=== PATIENT | male | born 1995 | race American Indian/Alaskan Native ===

== ENCOUNTER 2020-12-26 02:55 | Emergency (ER) | payer OTHER ==
[2020-12-26 03:31] VITALS: BP 105/63
--- NOTE | 2020-12-26 03:42 | Emergency Department Report ---
ED Male HPI - General Chief complaint: Urogenital-Male Stated complaint: BLOOD WORK/SEXUAL HEALTH Source: patient Mode of arrival: Ambulatory Limitations: No Limitations - History of Present Illness Initial comments: Patient is a 25-year-old -[place] male with no past of chlamydia and gonorrhea, as well as genital herpes infection presents to the ED with complaint of acute onset persistent dysuria, penile itching and pain for the last 2 days. Patient states that he would like to be evaluated extensively for STD with blood work to determine what kind of STD he has. Patient admits to having unprotected sexual intercourse routinely. Patient states that his girlfriend has had similar symptoms. Patient denies fever, chills, testicular pain, abdominal pain, nausea and vomiting, chest pain, shortness of breath, penile discharge, low back pain, hematuria, traumatic injury or headache. MD Complaint: dysuria, other (Penile itching) -: Sudden, days(s) (2) Location: penis Radiation: none Severity: moderate Quality: burning, other (Itching) Consistency: constant Improves with: none Worsens with: urination denies other symptoms, dysuria. denies: discharge, swelling, mass, rash, urinary retention, blood in urine, fever, nausea/vomiting, incontinence - Related Data Sexually active: Yes (Unprotected sexual intercourse) Allergies Allergy/AdvReac Type Severity Reaction Status Date / Time No Known Allergies Allergy Verified 12/26/20 03:31 ED Review of Systems ROS: Stated complaint: BLOOD WORK/SEXUAL HEALTH Other details as noted in HPI Constitutional: denies: chills, fever Eyes: denies: eye pain, eye discharge, vision change ENT: denies: ear pain, throat pain Respiratory: denies: cough, shortness of breath, wheezing Cardiovascular: denies: chest pain, palpitations Endocrine: no symptoms reported Gastrointestinal: denies: abdominal pain, nausea, diarrhea Genitourinary: dysuria, other (Penile itching). denies: urgency Musculoskeletal: denies: back pain, joint swelling, arthralgia Skin: denies: rash, lesions Neurological: denies: headache, weakness, paresthesias Psychiatric: denies: anxiety, depression Hematological/Lymphatic: denies: easy bleeding, easy bruising ED Past Medical Hx - Past Medical History Previous Medical History?: No ED Physical Exam - General Limitations: No Limitations General appearance: alert, in no apparent distress - Head Head exam: Present: atraumatic, normocephalic, normal inspection - Eye Eye exam: Present: normal appearance, PERRL, EOMI Pupils: Present: normal accommodation - ENT ENT exam: Present: normal exam, normal orophraynx, mucous membranes moist, TM's normal bilaterally, normal external ear exam - Neck Neck exam: Present: normal inspection, full ROM - Respiratory Respiratory exam: Present: normal lung sounds bilaterally. Absent: respiratory distress, wheezes, rales, rhonchi, chest wall tenderness, accessory muscle use, decreased breath sounds - Cardiovascular Cardiovascular Exam: Present: regular rate, normal rhythm, normal heart sounds. Absent: systolic murmur, diastolic murmur, rubs, gallop - GI/Abdominal GI/Abdominal exam: Present: soft, normal bowel sounds. Absent: distended, tenderness, guarding, hyperactive bowel sounds, hypoactive bowel sounds - External exam: Present: other (Genital exam deferred, patient choice) - Extremities Exam Extremities exam: Present: normal inspection, full ROM, normal capillary refill - Back Exam Back exam: Present: normal inspection, full ROM. Absent: tenderness, CVA tenderness (R), CVA tenderness (L), muscle spasm, paraspinal tenderness - Neurological Exam Neurological exam: Present: alert, oriented X3, CN II-XII intact, normal gait, reflexes normal - Psychiatric Psychiatric exam: Present: normal affect, normal mood - Skin Skin exam: Present: warm, dry, intact, normal color. Absent: rash ED Course Vital Signs 12/26/20 03:29 Temperature 97.9 F Pulse Rate 60 Blood Pressure 105/63 [Right] O2 Sat by Pulse 98 Oximetry ED Medical Decision Making - Medical Decision Making This is a 25-year-old -[place] male with no past of chlamydia and gonorrhea, as well as genital herpes infection presents to the ED with complaint of acute onset persistent dysuria, penile itching and pain for the last 2 days. Patient states that he would like to be evaluated extensively for STD with blood work to determine what kind of STD he has. Patient admits to having unprotected sexual intercourse routinely. Patient states that his girlfriend has had similar symptoms. In the ED, patient is alert and oriented x3 and is not in any distress. Patient was counseled on importance of observation of safe sexual practices and advised to follow-up with a [facility] depa rtment for further evaluation and STD testing since his symptoms are not emergency. Patient was otherwise advised to follow-up with his primary care physician in 7 to 10 days for reevaluation. - Differential Diagnosis Urethritis; Gonorrhea; Chlamydia; Genital herpes Critical care attestation.: If time is entered above; I have spent that time in minutes in the direct care of this critically ill patient, excluding procedure time. ED Disposition Clinical Impression: Pain in the penis, Penile pruritus, Screening for STD (sexually transmitted disease) Disposition: 01 HOME / SELF CARE / HOMELESS Is pt being admited?: No Does the pt Need Aspirin: No Condition: Stable Instructions: Chlamydia, Male, Anal Pruritus, [id number], Safe Sex, Gonorrhea Additional Instructions: Follow-up with the [facility] department for further evaluation including STD testing such as gonorrhea and chlamydia, HIV, syphilis or genital herpes. Ensure you observe safe sexual practices. Referrals: [facility] Depart [Outside] - 3-5 Days Time of Disposition: 03:41 Print Language: SLOV[place]
== END 2020-12-26 03:55 | disposition home or self-care (01) ==
LOC: ED 02:55
DX: N48.89 Other specified disorders of penis (principal); N48.29 Other inflammatory disorders of penis; Z11.3 Encounter for screening for infections with a predominantly sexual mode of transmission
CPT/HCPCS: 99282